=== PATIENT | male | born 1990 | race Two or more races ===

== ENCOUNTER 2018-06-12 01:45 | Emergency (ER) | payer OTHER ==
[~2018-06-12] VITALS: Ht 182.9 cm; Wt 61.2 kg
[2018-06-12 01:45] VITALS: BP 119/69
--- NOTE | 2018-06-12 01:58 | Emergency Room Report ---
History of Present Illness General Chief Complaint: Animal Bite Source: Patient Present Illness HPI Patient is a 27-year-old male who presented after reported to animal bite. Patient reports having been bitten by a neighbors pet which appeared well. The patient denies other locations of pain. Injury occurred to his left upper extremity. Patient is right-hand dominant.The patient reports taking Lyrica, Naprosyn and baclofen.Patient states that he reports the animal due to wanting to remove an object from the dog's mouth.He reports having increased pain with movement. Allergies: Coded Allergies: AMOXICILLIN (Verified Allergy, Unknown, 06/12/18) Nursing Documentation-[facility] Past Medical History: No History, Except For Hx Seizures: Yes Review of Systems All Other Systems: negative except mentioned in HPI Physical Exam Vital Signs Date Time Temp Pulse Resp B/P (MAP) Pulse Ox O2 Delivery O2 Flow Rate FiO2 06/12/18 01:44 98.1 72 15 119/69 97 Room Air 98.1 General Appearance: well appearing, no apparent distress, alert, GCS 15 Head: normocephalic, atraumatic Eyes: bilateral eye other - bilateral scleral tatoos ENT: hearing grossly normal, normal voice Neck: full range of motion, supple Respiratory: no respiratory distress, speaking full sentences Cardiovascular #1: normal inspection Gastrointestinal: normal inspection, non tender Musculoskeletal: no calf tenderness Neurologic: normal inspection, alert, oriented x3, responsive, motor weakness - left leg weakness, chronic Psychiatric: mood/affect normal Skin: other - puncture wound to index finger Medical Decision Making Diagnostic Impression: Primary Impression: Bite by animal Additional Impression: Puncture wound ER Course Patient presented for animal bite. Differential diagnoses included was not limited to fracture, puncture wound, crush injury, foreign body among others. X -ray imaging of the left hand indication pain 3 views interpreted by me showed normal bony alignment without evident fractureThe patient was noted to have some swelling. The the skin defects were small and did not appear to require suturing. The patient was given prescription for oral antibiotics and pain medications. The patient is advised to follow up with primary care doctor in 2 -3 days for wound check. Patient is advised to return if any worsening condition or if any changes in status that are concerning. This report is dictated with [employer] software which may occasionally lead to discrepancies related to use of this software. Last Vital Signs Date Time Temp Pulse Resp B/P (MAP) Pulse Ox O2 Delivery O2 Flow Rate FiO2 06/12/18 01:44 98.1 72 15 119/69 97 Room Air 98.1 Status: improved Disposition: HOME, SELF-CARE Condition: Stable Scripts Trimethoprim/Sulfamethoxazole 160/800* (BACTRIM DS TABLET*) 1 Each Tablet 1 TAB ORAL Q12H, #10 TAB 0 Refills Prov: Bayron Gama MD 06/12/18 Clindamycin Hcl (CLINDAMYCIN HCL) 300 Mg Capsule 300 MG ORAL FOUR TIMES A DAY, #20 CAP Prov: Bayron Gama MD 06/12/18 Bayron Gama MD Jun 12, 2018 01:58
[2018-06-12] MEDS ORDERED: Tetanus/Diptheria/Pertussis Vaccine 0.5ml Syr IM ONE (02:00)
[2018-06-12] MEDS ORDERED: CLINDAMYCIN HC300 MG ORAL (02:37)
[2018-06-12] MEDS ORDERED: BACTRIM DS TAB1 EAC1 ORAL (02:37)
[2018-06-12] MEDS ORDERED: Bacitracin Oint UD TOPIC ONE ×2 (02:46→03:00)
[2018-06-12 02:55] VITALS: BP 120/70
--- NOTE | 2018-06-12 10:57 | Diagnostic Imaging Report ---
Indication: left hand pain. Findings: 3 views of the left hand were obtained. Normal alignment is demonstrated. No acute fractures, erosions, or periosteal reaction are seen. Soft tissues are unremarkable. Impression: No acute findings.
== END 2018-06-12 02:55 | disposition home or self-care (01) ==
LOC: EDBD 01:45 → EMR 02:21
DX: S61.231A Puncture wound without foreign body of left index finger without damage to nail, initial encounter (principal); W54.0XXA Bitten by dog, initial encounter; Y92.89 Other specified places as the place of occurrence of the external cause; Z23 Encounter for immunization; Z88.0 Allergy status to penicillin
CPT/HCPCS: 90471; 90715; 99283